=== PATIENT | male | born 1945 | race Caucasian/White ===

== ENCOUNTER → 2016-04-09 | Outpatient (CLI) | payer OTHER ==
--- NOTE | 2016-04-09 17:27 | DX ---
Right Thumb, Three Views History: Pain at terminal tuft. Findings: Tiny radiopaque density is seen in the soft tissues volar to the tip of the terminal tuft. No evidence for a fracture or osseous erosion. Mild degenerative change is seen at the interphalan geal joint of the thumb, with subarticular sclerosis and periarticular spurring. Mild degenerative c hange is also seen in the 1st metacarpophalangeal joint. Severe degenerative change is seen at the 1 st carpometacarpal joint, with joint narrowing, with [id number] articulation and subarticular scler osis and prominent spurring. Soft tissue calcification is also seen in the 1st web space. Impression: Tiny radiopaque foreign body or soft tissue calcification volar to the tip of the termin al tuft. No evidence of adjacent osseous erosion or fracture. Degenerative change, as above.
== END ==
LOC: BRMIMAGING 16:26
PROVIDERS: ATTEND Physician Assistant Medical
DX: R93.7 Abnormal findings on diagnostic imaging of other parts of musculoskeletal system (principal); M79.644 Pain in right finger(s)
CPT/HCPCS: 73140-PO